=== PATIENT | female | born 1950 | race Caucasian/White ===

== ENCOUNTER 2020-11-12 21:30 | Inpatient (IN) | payer MEDICARE, OTHER ==
[~2020-11-12] VITALS: Ht 170.2 cm; Wt 88.9 kg
[2020-11-12] MEDS ORDERED: ACETAMINOPHEN ES 500 MG TABLET PO ONE (22:00)
[2020-11-12] MEDS ORDERED: ACETAMINOPHEN ES 500 MG TABLET ONE (22:07)
[2020-11-12] MEDS ORDERED: ONDANSETRON ODT 4 MG TAB.RAPDIS SL ONE (22:15)
[2020-11-12] MEDS ORDERED: ONDANSETRON ODT 4 MG TAB.RAPDIS ONE ×2 (22:21→22:29)
[2020-11-13] MEDS ORDERED: MORPHINE SULFATE 2 MG/1 ML DISP.SYRIN IV ONE
[2020-11-13] MEDS ORDERED: ONDANSETRON 4 MG/2 ML VIAL IV ONE
[2020-11-13 00:21] LABS: BASOPHILS % (AUTO) 0.4 % (0.0-2.0); EOSINOPHILS # (AUTO) 0.1 K/uL (0.0-0.7); LYMPHOCYTES # (AUTO) 1.6 K/uL (20.0-40.0); LYMPHOCYTES % (AUTO) 21.1 % (20.5-51.5); MEAN CORPUSCULAR HEMOGLOBIN 31.6 uug (24.7-32.8); MEAN CORPUSCULAR HGB CONC 34 g/dL (32.3-35.6); MEAN CORPUSCULAR VOLUME 92.6 fL (75.5-95.3); MONOCYTES # (AUTO) 0.4 K/uL (2.0-10.0); NEUTROPHILS # (AUTO) 5.3 K/uL (1.8-8.9); NEUTROPHILS % (AUTO) 71.5 % (38.5-71.5); PLATELET COUNT (AUTO) 254 K/uL (179-408); RED BLOOD CELL COUNT(AUTO) 4.76 MIL/uL (3.63-4.92); WHITE BLOOD COUNT (AUTO) 7.4 K/uL (3.8-11.8)
[2020-11-13] MEDS ORDERED: ONDANSETRON 4 MG/2 ML VIAL ONE (00:28)
[2020-11-13] MEDS ORDERED: MORPHINE SULFATE 2 MG/1 ML DISP.SYRIN ONE (00:28)
[2020-11-13 00:29] LABS: CREATININE 1.1 mg/dL (0.6-1.3); POTASSIUM 3.7 mmol/L (3.5-5.1)
[2020-11-13 00:33] LABS: BILIRUBIN,DIRECT 0.1 mg/dL (0.0-0.2); BILIRUBIN,TOTAL 0.5 mg/dL (0.2-1.0); TOTAL PROTEIN, SERUM 7.9 g/dL (6.4-8.2)
[2020-11-13] MEDS ORDERED: ACETAMINOPHEN 325 MG TABLET PO PRN (01:00)
[2020-11-13] MEDS ORDERED: Z GUARD REMEDY PASTE 57 GM TUBE TOP PRN (01:00)
[2020-11-13] MEDS ORDERED: ONDANSETRON 4 MG/2 ML VIAL IV PRN (01:00)
[2020-11-13] MEDS ORDERED: MAGNESIUM HYDROXIDE 30 ML LIQUID UDC PO PRN (01:00)
[2020-11-13] MEDS ORDERED: IV NS 1000 ML 1,000 ML IV PRN (01:00)
[2020-11-13] MEDS ORDERED: ENOXAPARIN SODIUM 30 MG/0.3 ML DISP.SYRIN SQ SCH ×2 (01:00→02:51)
[2020-11-13] MEDS: HYDROCODONE/APAP 5-325MG TABLET PO PRN ×5 (02:39→20:21)
[2020-11-13] MEDS ORDERED: ENOXAPARIN SODIUM 30 MG/0.3 ML DISP.SYRIN ONE (02:57)
[2020-11-13 04:47] VITALS: BP 145/78
[2020-11-13 11:54] VITALS: BP 134/72
[2020-11-13 16:00] VITALS: BP 135/60
[2020-11-13 20:06] VITALS: BP 110/53
[2020-11-14 04:06] VITALS: BP 129/57
[2020-11-14 05:38] LABS: BASOPHILS % (AUTO) 0.6 % (0.0-2.0); EOSINOPHILS # (AUTO) 0.3 K/uL (0.0-0.7); HEMATOCRIT 39.6 % (31.2-41.9); HEMOGLOBIN 13.4 g/dL (10.9-14.3); LYMPHOCYTES # (AUTO) 1.8 K/uL (20.0-40.0); LYMPHOCYTES % (AUTO) 38.4 % (20.5-51.5); MEAN CORPUSCULAR HEMOGLOBIN 31.6 uug (24.7-32.8); MEAN CORPUSCULAR HGB CONC 34 g/dL (32.3-35.6); MEAN CORPUSCULAR VOLUME 93.2 fL (75.5-95.3); MONOCYTES # (AUTO) 0.4 K/uL (2.0-10.0); MONOCYTES % (AUTO) 8.1 % (0.0-11.0); NEUTROPHILS # (AUTO) 2.2 K/uL (1.8-8.9); NEUTROPHILS % (AUTO) 46.9 % (38.5-71.5); PLATELET COUNT (AUTO) 218 K/uL (179-408); RED BLOOD CELL COUNT(AUTO) 4.25 MIL/uL (3.63-4.92); WHITE BLOOD COUNT (AUTO) 4.8 K/uL (3.8-11.8)
[2020-11-14 06:01] LABS: BILIRUBIN,TOTAL 0.5 mg/dL (0.2-1.0); CREATININE 1.1 mg/dL (0.6-1.3); MAGNESIUM 1.9 mg/dL (1.8-2.4); PHOSPHOROUS 3.4 mg/dL (2.5-4.9); POTASSIUM 3.7 mmol/L (3.5-5.1); TOTAL PROTEIN, SERUM 6.9 g/dL (6.4-8.2)
[2020-11-14] MEDS ORDERED: LEVOTHYROXINE SODIUM 50 MCG TABLET PO SCH (07:00)
[2020-11-14] MEDS: HYDROCODONE/APAP 5-325MG TABLET PO PRN ×2 (08:11→12:15)
[2020-11-14] MEDS ORDERED: AMLODIPINE 5 MG TABLET PO SCH (09:00)
[2020-11-14 11:33] VITALS: BP 143/63
[2020-11-14 16:00] VITALS: BP 140/69
[2020-11-14] MEDS ORDERED: HYDR-3974 PO (18:10)
[2020-11-14] MEDS ORDERED: MAGN400O6 PO (18:10)
[2020-11-14] MEDS ORDERED: ACET-2154 PO (18:10)
[2020-11-14] MEDS ORDERED: ENOX40DI SQ (18:10)
[2020-11-14] MEDS ORDERED: AMLO5TAB4 PO (18:10)
[2020-11-14] MEDS ORDERED: LEVO50TA8 PO (18:10)
[2020-11-14] MEDS ORDERED: ONDANSETRON IV (18:10)
== END 2020-11-14 17:00 | DRG 605 ==
LOC: ER 21:38 → MEDSURG3 11-13 02:39
PROVIDERS: ADMIT Nurse Practitioner Acute Care; ATTEND Nurse Practitioner Family
DX: S80.11XA Contusion of right lower leg, initial encounter (principal); S86.911A Strain of unspecified muscle(s) and tendon(s) at lower leg level, right leg, initial encounter; W18.39XA Other fall on same level, initial encounter; Y93.01 Activity, walking, marching and hiking; Y92.89 Other specified places as the place of occurrence of the external cause; E03.9 Hypothyroidism, unspecified; Z60.2 Problems related to living alone; R26.2 Difficulty in walking, not elsewhere classified; Z85.42 Personal history of malignant neoplasm of other parts of uterus; E66.9 Obesity, unspecified; Z71.3 Dietary counseling and surveillance; Z90.710 Acquired absence of both cervix and uterus; I10 Essential (primary) hypertension; Z83.3 Family history of diabetes mellitus; Z82.49 Family history of ischemic heart disease and other diseases of the circulatory system; Z80.3 Family history of malignant neoplasm of breast; Z87.891 Personal history of nicotine dependence; I45.10 Unspecified right bundle-branch block; E86.0 Dehydration; Z20.822 Contact with and (suspected) exposure to COVID-19
CPT/HCPCS: 36415; 71045; 73502; 73590; 73700; 83735; 84100; 85025; 93005; A4217; A4663; A9150; G0378; J1650; J2270; J2405; J7030; Q0162

== ENCOUNTER 2020-11-14 11:32 | Inpatient (IN) | payer MEDICARE, OTHER ==
[~2020-11-14] VITALS: Ht 170.2 cm; Wt 88.5 kg
[2020-11-14] MEDS ORDERED: Z GUARD REMEDY PASTE 57 GM TUBE TOP PRN (17:30)
[2020-11-14] MEDS ORDERED: ACET-2154 PO (18:10)
[2020-11-14] MEDS ORDERED: HYDR-3974 PO (18:10)
[2020-11-14] MEDS ORDERED: AMLO5TAB4 PO (18:10)
[2020-11-14] MEDS ORDERED: LEVO50TA8 PO (18:10)
[2020-11-14] MEDS ORDERED: ONDANSETRON IV (18:10)
[2020-11-14] MEDS ORDERED: MAGN400O6 PO (18:10)
[2020-11-14] MEDS ORDERED: ENOX40DI SQ (18:10)
[2020-11-14] MEDS ORDERED: MAGNESIUM HYDROXIDE 30 ML LIQUID UDC PO PRN (18:45)
[2020-11-14] MEDS ORDERED: ACETAMINOPHEN 325 MG TABLET PO SCH (18:45)
[2020-11-14] MEDS ORDERED: ONDANSETRON HCL 4 MG TABLET PO SCH (18:45)
[2020-11-14] MEDS ORDERED: LEVOTHYROXINE SODIUM 50 MCG TABLET PO SCH (18:45)
[2020-11-14] MEDS: HYDROCODONE/APAP 5-325MG TABLET PO SCH (19:04)
[2020-11-14 20:00] VITALS: BP 152/71
[2020-11-14] MEDS ORDERED: ENOXAPARIN SODIUM 30 MG/0.3 ML DISP.SYRIN SQ SCH (21:00)
[2020-11-15 04:00] VITALS: BP 157/60
[2020-11-15] MEDS: HYDROCODONE/APAP 5-325MG TABLET PO SCH (04:48)
[2020-11-15] MEDS ORDERED: ONDANSETRON HCL 4 MG TABLET PO PRN (07:45)
[2020-11-15] MEDS ORDERED: ACETAMINOPHEN 325 MG TABLET PO PRN (07:45)
[2020-11-15 07:59] VITALS: BP_SYST 118; BP_SYST 151; BP_DIAS 66; BP_DIAS 76
[2020-11-15] MEDS ORDERED: LEVOTHYROXINE SODIUM 50 MCG TABLET PO SCH (09:00)
[2020-11-15] MEDS: LEVOTHYROXINE SODIUM 50 MCG TABLET PO SCH (09:08)
[2020-11-15] MEDS: AMLODIPINE 5 MG TABLET PO SCH (09:08)
[2020-11-15] MEDS: HYDROCODONE/APAP 5-325MG TABLET PO PRN ×2 (10:50→16:16)
[2020-11-15] MEDS: ENOXAPARIN SODIUM 40 MG/0.4 ML DISP.SYRIN SQ SCH (20:06)
[2020-11-15 20:34] VITALS: BP 124/63
[2020-11-15] MEDS: IBUPROFEN 400 MG TABLET PO SCH (22:26)
[2020-11-16 04:06] VITALS: BP 134/70
[2020-11-16 05:54] VITALS: BP 134/70
[2020-11-16] MEDS: IBUPROFEN 400 MG TABLET PO SCH ×3 (06:04→21:02)
[2020-11-16] MEDS: LEVOTHYROXINE SODIUM 50 MCG TABLET PO SCH (06:04)
[2020-11-16 06:22] LABS: BASOPHILS % (AUTO) 0.7 % (0.0-2.0); EOSINOPHILS # (AUTO) 0.3 K/uL (0.0-0.7); EOSINOPHILS % (AUTO) 6.7 % (0.0-7.0); HEMATOCRIT 40.6 % (31.2-41.9); LYMPHOCYTES # (AUTO) 2.2 K/uL (20.0-40.0); MEAN CORPUSCULAR HEMOGLOBIN 32.2 uug (24.7-32.8); MEAN CORPUSCULAR HGB CONC 35 g/dL (32.3-35.6); MEAN CORPUSCULAR VOLUME 93.2 fL (75.5-95.3); MONOCYTES # (AUTO) 0.4 K/uL (2.0-10.0); MONOCYTES % (AUTO) 7.7 % (0.0-11.0); NEUTROPHILS # (AUTO) 1.8 K/uL (1.8-8.9); NEUTROPHILS % (AUTO) 37.9 % (38.5-71.5); PLATELET COUNT (AUTO) 219 K/uL (179-408); RED BLOOD CELL COUNT(AUTO) 4.36 MIL/uL (3.63-4.92); WHITE BLOOD COUNT (AUTO) 4.8 K/uL (3.8-11.8)
[2020-11-16 06:33] LABS: CREATININE 1.2 mg/dL (0.6-1.3); PHOSPHOROUS 3.9 mg/dL (2.5-4.9); POTASSIUM 4.2 mmol/L (3.5-5.1)
[2020-11-16 08:00] VITALS: BP 127/77
[2020-11-16 08:01] LABS: THYROID STIMULATING HORMONE 5.747 mIU/mL (0.358-3.740)
[2020-11-16] MEDS: AMLODIPINE 5 MG TABLET PO SCH (09:31)
[2020-11-16] MEDS: HYDROCODONE/APAP 5-325MG TABLET PO PRN (09:37)
[2020-11-16] MEDS: LIDOCAINE 5% PATCH TD SCH (12:37)
[2020-11-16 15:06] VITALS: BP 121/65
[2020-11-16] MEDS: ENOXAPARIN SODIUM 40 MG/0.4 ML DISP.SYRIN SQ SCH (20:52)
[2020-11-16 21:19] VITALS: BP 137/67
[2020-11-17] MEDS: IBUPROFEN 400 MG TABLET PO SCH ×3 (05:11→15:38)
[2020-11-17] MEDS: HYDROCODONE/APAP 5-325MG TABLET PO PRN ×3 (05:12→21:31)
[2020-11-17 05:24] VITALS: BP 141/71
[2020-11-17] MEDS: LEVOTHYROXINE SODIUM 75 MCG TABLET PO SCH (06:04)
[2020-11-17 08:00] VITALS: BP 148/67
[2020-11-17] MEDS: AMLODIPINE 5 MG TABLET PO SCH (08:22)
[2020-11-17] MEDS: LIDOCAINE 5% PATCH TD SCH (08:26)
[2020-11-17 11:44] VITALS: BP 152/70
[2020-11-17 15:44] VITALS: BP 119/65
[2020-11-17 20:02] VITALS: BP 131/68
[2020-11-17] MEDS: ENOXAPARIN SODIUM 40 MG/0.4 ML DISP.SYRIN SQ SCH (21:27)
[2020-11-18 04:30] VITALS: BP 126/77
[2020-11-18] MEDS: LEVOTHYROXINE SODIUM 75 MCG TABLET PO SCH (06:02)
[2020-11-18] MEDS: IBUPROFEN 400 MG TABLET PO SCH ×3 (06:02→21:40)
[2020-11-18 08:00] VITALS: BP 143/69
[2020-11-18] MEDS: AMLODIPINE 5 MG TABLET PO SCH (08:13)
[2020-11-18] MEDS: LIDOCAINE 5% PATCH TD SCH (08:28)
[2020-11-18] MEDS: HYDROCODONE/APAP 5-325MG TABLET PO PRN ×2 (09:39→20:13)
[2020-11-18] MEDS: ZINC SULFATE 220 MG CAPSULE PO SCH (11:33)
[2020-11-18] MEDS: ASCORBIC ACID 500 MG TABLET PO SCH (11:33)
[2020-11-18] MEDS: CHOLECALCIFEROL 400 UNITS TABLET PO SCH (12:06)
[2020-11-18 15:05] VITALS: BP 114/66
[2020-11-18] MEDS: ENOXAPARIN SODIUM 40 MG/0.4 ML DISP.SYRIN SQ SCH (20:10)
[2020-11-18 20:48] VITALS: BP 145/71
[2020-11-18] MEDS: PREGABALIN 25 MG CAPSULE PO SCH (21:40)
[2020-11-19 05:25] VITALS: BP 154/67
[2020-11-19] MEDS: IBUPROFEN 400 MG TABLET PO SCH ×3 (06:07→21:29)
[2020-11-19] MEDS: PREGABALIN 25 MG CAPSULE PO SCH ×3 (06:07→21:29)
[2020-11-19] MEDS: LEVOTHYROXINE SODIUM 75 MCG TABLET PO SCH (06:10)
[2020-11-19 07:50] VITALS: BP 135/69
[2020-11-19] MEDS: ZINC SULFATE 220 MG CAPSULE PO SCH (08:09)
[2020-11-19] MEDS: CHOLECALCIFEROL 400 UNITS TABLET PO SCH (08:10)
[2020-11-19] MEDS: AMLODIPINE 5 MG TABLET PO SCH (08:10)
[2020-11-19] MEDS: ASCORBIC ACID 500 MG TABLET PO SCH (08:10)
[2020-11-19] MEDS: LIDOCAINE 5% PATCH TD SCH (08:16)
[2020-11-19] MEDS: HYDROCODONE/APAP 5-325MG TABLET PO PRN ×2 (09:30→20:06)
[2020-11-19] MEDS ORDERED: LORAZEPAM 1 MG TABLET PO ONE (11:15)
[2020-11-19 17:00] VITALS: BP 115/67
[2020-11-19 20:00] VITALS: BP 124/64
[2020-11-19] MEDS: ENOXAPARIN SODIUM 40 MG/0.4 ML DISP.SYRIN SQ SCH (21:30)
[2020-11-20 04:00] VITALS: BP 116/54
[2020-11-20] MEDS: PREGABALIN 25 MG CAPSULE PO SCH ×3 (06:01→21:19)
[2020-11-20] MEDS: IBUPROFEN 400 MG TABLET PO SCH ×3 (06:01→21:20)
[2020-11-20] MEDS: LEVOTHYROXINE SODIUM 75 MCG TABLET PO SCH (06:01)
[2020-11-20 08:00] VITALS: BP 135/60
[2020-11-20] MEDS: ZINC SULFATE 220 MG CAPSULE PO SCH (08:17)
[2020-11-20] MEDS: ASCORBIC ACID 500 MG TABLET PO SCH (08:19)
[2020-11-20] MEDS: HYDROCODONE/APAP 5-325MG TABLET PO PRN ×2 (08:19→17:28)
[2020-11-20] MEDS: AMLODIPINE 5 MG TABLET PO SCH (08:19)
[2020-11-20] MEDS: CHOLECALCIFEROL 400 UNITS TABLET PO SCH (08:19)
[2020-11-20] MEDS: LIDOCAINE 5% PATCH TD SCH (08:22)
[2020-11-20 16:17] VITALS: BP 133/64
[2020-11-20 20:00] VITALS: BP 145/63
[2020-11-20] MEDS: ENOXAPARIN SODIUM 40 MG/0.4 ML DISP.SYRIN SQ SCH (20:38)
[2020-11-21 04:00] VITALS: BP 118/70
[2020-11-21] MEDS: IBUPROFEN 400 MG TABLET PO SCH ×3 (05:59→20:46)
[2020-11-21] MEDS: PREGABALIN 25 MG CAPSULE PO SCH ×3 (05:59→20:46)
[2020-11-21] MEDS: PANTOPRAZOLE SODIUM 40 MG TABLET.DR PO SCH (06:00)
[2020-11-21] MEDS: LEVOTHYROXINE SODIUM 75 MCG TABLET PO SCH (06:00)
[2020-11-21] MEDS: CHOLECALCIFEROL 400 UNITS TABLET PO SCH (08:38)
[2020-11-21] MEDS: ZINC SULFATE 220 MG CAPSULE PO SCH (08:38)
[2020-11-21] MEDS: ASCORBIC ACID 500 MG TABLET PO SCH (08:38)
[2020-11-21] MEDS: AMLODIPINE 5 MG TABLET PO SCH (08:38)
[2020-11-21] MEDS: LIDOCAINE 5% PATCH TD SCH (08:39)
[2020-11-21 08:41] VITALS: BP_SYST 121; BP_SYST 142; BP_DIAS 72; BP_DIAS 76
[2020-11-21] MEDS: HYDROCODONE/APAP 5-325MG TABLET PO PRN (15:04)
[2020-11-21 15:41] VITALS: BP 136/79
[2020-11-21 20:09] VITALS: BP 122/57
[2020-11-21] MEDS: ENOXAPARIN SODIUM 40 MG/0.4 ML DISP.SYRIN SQ SCH (20:46)
[2020-11-22 04:00] VITALS: BP 141/66
[2020-11-22] MEDS: IBUPROFEN 400 MG TABLET PO SCH ×3 (05:45→20:30)
[2020-11-22] MEDS: PANTOPRAZOLE SODIUM 40 MG TABLET.DR PO SCH (05:45)
[2020-11-22] MEDS: PREGABALIN 25 MG CAPSULE PO SCH ×3 (05:45→22:00)
[2020-11-22] MEDS: LEVOTHYROXINE SODIUM 75 MCG TABLET PO SCH (05:45)
[2020-11-22 08:00] VITALS: BP 140/76
[2020-11-22] MEDS: CHOLECALCIFEROL 400 UNITS TABLET PO SCH (08:57)
[2020-11-22] MEDS: ZINC SULFATE 220 MG CAPSULE PO SCH (08:57)
[2020-11-22] MEDS: HYDROCODONE/APAP 5-325MG TABLET PO PRN ×2 (08:57→20:57)
[2020-11-22] MEDS: ASCORBIC ACID 500 MG TABLET PO SCH (08:57)
[2020-11-22] MEDS: LIDOCAINE 5% PATCH TD SCH (08:59)
[2020-11-22] MEDS: AMLODIPINE 5 MG TABLET PO SCH (08:59)
[2020-11-22 16:00] VITALS: BP 117/53
[2020-11-22 20:18] VITALS: BP 118/77
[2020-11-22] MEDS: ENOXAPARIN SODIUM 40 MG/0.4 ML DISP.SYRIN SQ SCH (20:29)
[2020-11-23 04:00] VITALS: BP 105/54
[2020-11-23] MEDS: IBUPROFEN 400 MG TABLET PO SCH ×2 (06:00→13:11)
[2020-11-23] MEDS: PREGABALIN 25 MG CAPSULE PO SCH ×2 (06:01→13:12)
[2020-11-23] MEDS: LEVOTHYROXINE SODIUM 75 MCG TABLET PO SCH (06:13)
[2020-11-23] MEDS: PANTOPRAZOLE SODIUM 40 MG TABLET.DR PO SCH (06:15)
[2020-11-23 08:08] VITALS: BP 145/68
[2020-11-23] MEDS: ZINC SULFATE 220 MG CAPSULE PO SCH (08:25)
[2020-11-23] MEDS: ASCORBIC ACID 500 MG TABLET PO SCH (08:25)
[2020-11-23 08:27] VITALS: BP 145/68
[2020-11-23] MEDS: CHOLECALCIFEROL 400 UNITS TABLET PO SCH (08:27)
[2020-11-23] MEDS: AMLODIPINE 5 MG TABLET PO SCH (08:27)
[2020-11-23] MEDS: LIDOCAINE 5% PATCH TD SCH (08:51)
[2020-11-23] MEDS: HYDROCODONE/APAP 5-325MG TABLET PO PRN (11:52)
[2020-11-23] MEDS ORDERED: POLYVINYL ALCOHOL OPHT DROPS 15 ML BOTTLE EACHEYE PRN (14:15)
== END 2020-11-23 14:00 | disposition home health service (06) | DRG 92 ==
PROVIDERS: ADMIT Physical Medicine & Rehabilitation Pain Medicine; ATTEND Physical Medicine & Rehabilitation Pain Medicine
DX: R26.9 Unspecified abnormalities of gait and mobility (principal); D68.59 Other primary thrombophilia; E03.9 Hypothyroidism, unspecified; I10 Essential (primary) hypertension; G89.11 Acute pain due to trauma; M79.604 Pain in right leg; S80.01XD Contusion of right knee, subsequent encounter; S80.11XD Contusion of right lower leg, subsequent encounter; W19.XXXD Unspecified fall, subsequent encounter; Z88.5 Allergy status to narcotic agent; M54.16 Radiculopathy, lumbar region; M19.90 Unspecified osteoarthritis, unspecified site; E66.9 Obesity, unspecified; Z68.30 Body mass index [BMI] 30.0-30.9, adult; Z85.42 Personal history of malignant neoplasm of other parts of uterus; K57.30 Diverticulosis of large intestine without perforation or abscess without bleeding; Z87.891 Personal history of nicotine dependence; Z90.710 Acquired absence of both cervix and uterus; Z80.3 Family history of malignant neoplasm of breast; Z82.49 Family history of ischemic heart disease and other diseases of the circulatory system; Z83.3 Family history of diabetes mellitus
CPT/HCPCS: 36415; 72148; 83735; 84100; 84443; 85025; J1650